=== PATIENT | male | born 1955 | race Two or more races ===

== ENCOUNTER 2021-10-29 10:10 | Outpatient (CLI) | payer OTHER | END 2021-10-29 10:11 | disposition home or self-care (01) | LOC: NUCLEAR 10:10 | PROVIDERS: ATTEND Specialist | DX: I87.2 Venous insufficiency (chronic) (peripheral) (principal) ==

== ENCOUNTER 2021-10-31 07:28 | Outpatient (CLI) | payer OTHER | END 2021-10-31 07:45 | disposition home or self-care (01) | LOC: NUCLEAR 07:28 | PROVIDERS: ATTEND Specialist | DX: I87.2 Venous insufficiency (chronic) (peripheral) (principal) ==